=== PATIENT | female | born 1970 | race African-American/Black ===

== ENCOUNTER 2017-07-10 06:09 | Inpatient (IN) ==
[2017-07-10] MEDS ORDERED: SODIUM CHLORIDE 0.9% 1,000 ML IV STA (06:41)
[2017-07-10 06:53] LABS: Basophils # 0.1 10*3/uL (0.0-0.2); Basophils % 0.3 % (0.0-0.8); Eosinophils % 0.2 % (0.00-10.9); Hematocrit 46.3 VOL% (35.7-47.0); Hemoglobin 15.7 GM/DL (12.0-16.0); Immature Granulocytes % 0.5 %; Mean Corpuscular HGB Conc 33.9 GM/DL (32-36); Mean Corpuscular Hemoglobin 30 PG (27-34); Mean Corpuscular Volume 89.2 FL (87-102); Mean Platelet Volume 10.4 FL (9.6-12.0); Monocytes # 0.5 10*3/uL (0.11-0.8); Monocytes % 2.4 % (1.7-12.7); Neutrophils # 17.2 10*3/uL (1.4-7.4); Neutrophils % 86.6 % (38.7-73.9); Platelet Count 296 T/CUMM (130-400); Red Blood Count 5.19 MC/CUMM (3.8-5.5); Red Cell Distribution Width 14.7 % (9.3-17.3); White Blood Count 19.8 T/CUMM (4-12)
[2017-07-10] MEDS ORDERED: HYDROmorphone 2 MG/1 ML VIAL IV STA ×2 (07:03→08:02)
[2017-07-10] MEDS ORDERED: ONDANSETRON 4 MG/2 ML VIAL IV STA (07:03)
[2017-07-10] MEDS ORDERED: HYDROmorphone 2 MG/1 ML VIAL ONE ×2 (07:06→08:30)
[2017-07-10] MEDS ORDERED: ONDANSETRON 4 MG/2 ML VIAL ONE (07:06)
[2017-07-10 07:35] LABS: Albumin 4.2 G/DL (3.4-5.0); Bilirubin,Total 0.5 MG/DL (0.2-1.0); Calcium 9.7 MG/DL (8.5-10.1); Osmolality,Calculated 281.5 MOS/KG (273-304); Potassium 3.5 MMOL/L (3.5-5.1); Total Protein 8.2 G/DL (6.4-8.3)
[2017-07-10] MEDS ORDERED: LEVOFLOXACIN INJ 750 MG in PREMIX 1 EACH IV STA (08:02)
--- NOTE | 2017-07-10 08:16 | XRay Report ---
History: Abdominal pain Date: 07/10/2017 Study: Flat and erect abdomen Comparison exam: April 16, 2010 There is no evidence of pneumoperitoneum. There is no evidence to suggest bowel obstruction. There is a paucity of bowel gas over the abdomen. No definite radiopaque calculus is seen. Tubal ligation clips overlie the pelvis bilaterally. There is mild degenerative disc disease in the lower lumbar spine. Impression: No acute abdominal process PROCEDURE INTERPRETED AT [facility] DEPARTMENT OF RADIOLOGY Final Report Signed by: Dr. Ruth Thurston
[2017-07-10] MEDS ORDERED: LEVOFLOXACIN INJ 150 ML IV ONE (08:30)
--- NOTE | 2017-07-10 09:25 | CT Report ---
History: Severe abdominal pain Date: 07/10/2017 Study: CT abdomen and pelvis with contrast Comparison exam: April 15, 2012 Technique: Spiral CT sections were obtained from the lung bases to the pubic symphysis following 100 mL Omnipaque [address] abdomen: The partially visualized lung bases are generally clear. There is no gross pleural or pericardial effusion. There is mild perihepatic ascites. There is no evidence of pneumoperitoneum. There is mild diffuse fatty infiltration of the otherwise unremarkable liver. The spleen, pancreas, bile ducts, gallbladder, adrenal glands, and kidneys are generally unremarkable in appearance. There is no aortic aneurysm. There is no high-grade stenosis at the origins of the celiac or superior mesenteric arteries. There is incomplete distention of the colon, limiting evaluation for wall thickening. There is some mild wall thickening of small bowel, more so in the right lower abdomen. There is no mariam bowel obstruction. There is no obvious lymphadenopathy. The appendix is not seen with certainty. CT pelvis: There is mild pelvic ascites. The uterus is mildly prominent. There is no obvious pelvic lymphadenopathy. There is prominent degenerative disc disease at L5-S1. The CT exam was performed using one or more of the following dose reduction techniques: Automated exposure control, adjustment of the mA and/or kV according to patient size, or use of iterative reconstruction technique. Impression: There is nonspecific small bowel wall thickening without evidence of mariam obstruction. This could represent some nonspecific enteritis. There is mild pelvic and perihepatic ascites. Otherwise unremarkable exam. Please see the above discussion PROCEDURE INTERPRETED AT [facility] DEPARTMENT OF RADIOLOGY Final Report Signed by: Dr. Ruth Thurston
[2017-07-10 09:44] LABS: Apearance,Urine CLEAR (Clear); Bilirubin,Urine Negative (Negative); Blood, Urine Small mg/dL (Negative); Glucose,Urine (UA) Negative (Negative); Ketones,Urine Negative (Negative); Mucus,Urine Occasional /LPF (Occasional); Nitrite,Urine Negative (Negative); Protein,Urine 30 MG/DL; RBC,Urine 5 /HPF (0-4); Squamous Epithelial Cell,Urine Occasional /HPF (0-10); Urine Color Yellow (Yellow); Urine Urobilinogen < 2.0 EU/DL (0.2-1.0); WBC,Urine <1 /HPF (0-6)
[2017-07-10] MEDS ORDERED: ACETAMINOPHEN 325 MG TABLET PO PRN (10:11)
[2017-07-10] MEDS ORDERED: oxyCODONE/ACETAMINOPHEN 5-325 MG TABLET PO PRN (10:11)
[2017-07-10] MEDS ORDERED: SODIUM CHLORIDE 0.9% 1,500 ML IV ONE (10:14)
[2017-07-10] MEDS: SODIUM CHLORIDE 0.9% 2,500 ML IV ONE ×2 (10:16→11:06)
--- NOTE | 2017-07-10 10:49 | Hospitalist History & Physical ---
Assessment and Plan (1) Sepsis Status: Acute Assessment and plan: Admit to monitored bed. Routine vital signs. IV access. Obtain blood cultures. Urine negative. CXR pending. Implement sepsis protocol. Fluid challenges calls for 2500 ml. Pt. has received 1000 ml in ED; will received 1500 in fluid bolus on the floor. NS @ 100 ml/hr afterwards. Repeat lactic acid routinely and in am. CBC/BMP in am. CT shows possible enteritis. Start IV antibiotics. Levaquin received in ED. Current Visit: Yes (2) Hypertension Status: Chronic Assessment and plan: Restart home med. Current Visit: Yes (3) Gout Status: Chronic Assessment and plan: Restart home med. Current Visit: Yes (4) Chronic back pain Status: Chronic Current Visit: Yes (5) Nausea & vomiting Status: Acute Assessment and plan: Prn antiemetics. Clear liquid diet. IV hydration. Current Visit: Yes History of Present Illness Chief complaint: abdominal pain History of present illness: Ms. Newton is a 47 year old black female with a history of GERD, hypertension, gout, and chronic back pain presents to the ED today for further evaluation of abdominal pain, nausea, vomiting, diarrhea. Patient is accompanied by her . Patient states that the abdominal pain began within an hour of her ED clam chowder soup and salad last night around 930. She described the pain as diffuse and sharp and shortly after she began to become nauseous which led to the vomiting and diarrhea. Patient states that her ate the same food as she did but has not become sick. She reports a similar episode years ago after eating [employer]. Patient reports a subjective fever and chills but denies night sweats, chest pain, or shortness of breath. Patient states that she took Imodium but that did not relieve her symptoms. She reported she was unable to sleep at all last night. She also states that from onset of her symptoms she has vomited about 8 times and has had about 16 loose stools. She says her last diarrhea stools were clear like water. In the ED, patient was noted to be hypertensive and tachycardic. Significant labs include WBC of 19.8, neutrophils 86.6, lymph 10, glucose 146, and lactic acid of 4. CT abdomen revealed pelvic ascites and 'nonspecific small bowel wall thickening without evidence of mariam obstruction which could possibly represent some nonspecific enteritis'. Pt's case has been discussed with ER physician Dr. Barger and hospitalist Dr. Gamboa. Patient will be admitted to the hospitalist service for further evaluation and treatment. Home medications have been reviewed and reconciled. Home Medications Medication Instructions Recorded Confirmed Type Allopurinol [Zyloprim] 100 mg PO DAILY 07/10/17 07/10/17 History Lisinopril/Hydrochlorothiazide 1 each PO DAILY 07/10/17 07/10/17 History [Lisinopril-Hctz 20-12.5 mg Tab] Oxycodone HCl/Acetaminophen 1 each PO Q6H PRN 07/10/17 07/10/17 History [Percocet 10-325 mg Tablet] Zolpidem Tartrate [Ambien] 10 mg PO BEDTIME 07/10/17 07/10/17 History fentaNYL [Fentanyl 25 mcg/hr Patch] 1 patch TOP Q72H 07/10/17 07/10/17 History Allergies Allergy/AdvReac Type Severity Reaction Status Date / Time No Known Allergies Allergy Verified 03/05/15 08:12 Medical,Surgical,& Family Hx - Medical History Cardio: History of: Hypertension Neurology: No history of: Seizures Rheumatology: History of;: Gout Other: History of: Miscellaneous Medical Problems (insomnia) - Surgical History Reproductive Surgeries: Surgical HX of;: Tubal Ligation - Social History Smoking Status: Current every day smoker Frequency of Alcohol Use: Frequently Type of Drug Use: None Marital Status: Lives With:: Spouse Functional capacity: independent ambulation 12 point system: reviewed and no additional remarkable complaints except as stated Exam - Constitutional Vitals: Period Temp Pulse Resp BP Sys/Castano Pulse Ox Last 24 Hr 98.1 F-98.1 F 94-115 18-24 123-150/78-111 95-100 General appearance: normal weight, no acute distress - Head Head exam: Present: normal inspection, normocephalic - Eye Eye exam: Present: EOMI Pupils: Present: GUI - Respiratory Respiratory exam: Present: clear to auscultation bilaterally. Absent: wheezes - Cardiovascular Cardiovascular exam: Present: regular rate and rhythm - GI/Abdominal GI/Abdominal exam: Present: normal bowel sounds, tenderness, soft - Extremities Exam Extremities exam: Present: normal capillary refill, full ROM. Absent: edema - Neurological Exam Neurological exam: Present: alert, oriented X3 - Psychiatric Psychiatric exam: Present: normal affect, normal mood - Skin Skin exam: Present: normal color, warm, dry Results - Labs CBC & BMP: 07/10/17 06:26 07/10/17 06:26 Lab Results: I have reviewed the past 24 hour labs
--- NOTE | 2017-07-10 11:01 | XRay Report ---
History: Sepsis Date: 07/10/2017 Study: Chest x-ray AP portable Comparison exam: No previous similar currently available The cardiac silhouette is upper normal in size. There is no mediastinal mass. The pulmonary vasculature is not engorged. There is no pleural effusion. The lungs are clear except for some minimal platelike scar or subsegmental atelectasis in the left lung base. There is some minor thoracolumbar scoliosis. Impression: No definite acute process. Minor platelike scar or subsegmental atelectasis left lung base PROCEDURE INTERPRETED AT [facility] DEPARTMENT OF RADIOLOGY Final Report Signed by: Dr. Ruth Thurston
[2017-07-10] MEDS: ONDANSETRON 4 MG/2 ML VIAL IV PRN ×3 (11:22→22:13)
[2017-07-10] MEDS: HYDROmorphone 2 MG/1 ML VIAL IV PRN ×3 (11:22→22:14)
[2017-07-10] MEDS: metroNIDAZOLE INJ 500 MG in PREMIX 1 EACH IV SCH ×2 (13:00→21:15)
[2017-07-10] MEDS: SODIUM CHLORIDE 0.9% 1,000 ML IV SCH (13:00)
[2017-07-10] MEDS ORDERED: fentaNYL 25 MCG/HR PATCH TRANSDERM SCH (22:00)
[2017-07-10] MEDS: ZALEPLON 5 MG CAPSULE PO SCH (22:02)
[2017-07-11] MEDS: HYDROmorphone 2 MG/1 ML VIAL IV PRN ×5 (02:33→19:51)
[2017-07-11] MEDS: SODIUM CHLORIDE 0.9% 1,000 ML IV SCH ×2 (02:35→19:49)
[2017-07-11] MEDS: ONDANSETRON 4 MG/2 ML VIAL IV PRN ×4 (02:38→19:50)
[2017-07-11] MEDS: metroNIDAZOLE INJ 500 MG in PREMIX 1 EACH IV SCH ×3 (03:58→19:51)
[2017-07-11 07:13] LABS: Basophils % 0.2 % (0.0-0.8); Eosinophils # 0.2 10*3/uL (0.0-0.87); Eosinophils % 2.1 % (0.00-10.9); Hematocrit 30.4 VOL% (35.7-47.0); Immature Granulocytes % 0.6 %; Immature Granulocytes Absolute 0.06 #; Lymphocytes # 3.7 10*3/uL (1.4-4.0); Lymphocytes % 34.9 % (21.3-54.2); Mean Corpuscular HGB Conc 33.2 GM/DL (32-36); Mean Corpuscular Hemoglobin 31 PG (27-34); Mean Corpuscular Volume 92.7 FL (87-102); Mean Platelet Volume 10.9 FL (9.6-12.0); Monocytes # 0.5 10*3/uL (0.11-0.8); Monocytes % 4.4 % (1.7-12.7); Neutrophils % 57.8 % (38.7-73.9); Red Blood Count 3.28 MC/CUMM (3.8-5.5); Red Cell Distribution Width 14.8 % (9.3-17.3); White Blood Count 10.5 T/CUMM (4-12)
[2017-07-11 07:19] LABS: Hemoglobin 10.1 GM/DL (12.0-16.0)
[2017-07-11 07:20] LABS: Platelet Count 180 T/CUMM (130-400)
[2017-07-11 07:48] LABS: Magnesium 1.6 MG/DL (1.8-2.4); Osmolality,Calculated 279.3 MOS/KG (273-304); Potassium 3.1 MMOL/L (3.5-5.1); Risk Ratio 3.5; Thyroid Stimulating Hormone 2.78 uIU/ml (0.358-3.74)
[2017-07-11] MEDS ORDERED: MAGNESIUM SULF RIDER 2 GM in PREMIX 1 EACH IV ONE ×2 (08:19→11:10)
[2017-07-11] MEDS ORDERED: POTASSIUM CHLORIDE 20 MEQ TABLET PO ONE ×2 (08:19→11:10)
[2017-07-11] MEDS: LEVOFLOXACIN INJ 750 MG in PREMIX 1 EACH IV SCH (09:04)
[2017-07-11] MEDS: PANTOPRAZOLE 40 MG TABLET PO SCH (09:04)
[2017-07-11] MEDS: LISINOPRIL/HCTZ 20-12.5 MG TABLET PO SCH (09:04)
[2017-07-11] MEDS: ALLOPURINOL 100 MG TABLET PO SCH (09:04)
[2017-07-11] MEDS: DESITIN 4OZ/NYSTATIN 15 GRAM MIXTURE PASTE TOP SCH ×2 (09:05→20:25)
--- NOTE | 2017-07-11 11:09 | Hospitalist Progress Note ---
Assessment and Plan (1) Acute gastroenteritis Status: Acute Assessment and plan: Continue supportive care and IV fluids. Advance diet as tolerated. Add Bentyl. Current Visit: Yes (2) Diarrhea Status: Acute Assessment and plan: Follow-up stool studies. Current Visit: Yes Qualifiers: Diarrhea type: presumed infectious Qualified Code(s): A09 - Infectious gastroenteritis and colitis, unspecified (3) Abdominal cramping Status: Acute Current Visit: Yes (4) Hypertension Status: Chronic Current Visit: Yes Qualifiers: Hypertension type: essential hypertension Qualified Code(s): I10 - Essential (primary) hypertension (5) Chronic back pain Status: Chronic Current Visit: Yes (6) Sepsis Status: Acute Assessment and plan: The patient presented with signs and symptoms of sepsis with evidence of gastrointestinal pathology and an elevated lactic acid of greater than 4. She improved with IV fluids. Continue antibiotics and follow-up cultures. Current Visit: Yes Qualifiers: Sepsis type: sepsis due to unspecified organism Qualified Code(s): A41.9 - Sepsis, unspecified organism Hospitalist: Subjective Interval history: Patient seen and examined. No acute events overnight. Case discussed with nursing staff. Labs reviewed. Patient complains of continued abdominal cramping with decreased amounts of diarrhea. No more nausea vomiting or dry heaving. Overall improved but still not feeling well enough to go home. She started clear liquids and is tolerating it okay but does not have an increased appetite and is not ready for regular food. Exam - Constitutional Vitals: Period Temp Pulse Resp BP Sys/Castano Pulse Ox Last 24 Hr 97.5 F-98.1 F 80-102 16-18 120-152/72-95 96-98 Exam: Constitutional System: No distress. No tremulousness. Head: Normocephalic, atraumatic. Ears, Nose and Throat System: No pain or tenderness. No epistaxis or discharge Eyes System: Pupils equal, round, and reactive. Extraocular muscles intact. Neck: Supple, without adenopathy, No jugular venous distention. No thyromegaly, neck mass, or prior surgery apparent. Respiratory System: Chest clear to auscultation. Cardiovascular System: Heart with regular rate and rhythm. No murmur. GI System: Abdomen soft, nontender. Normo active bowel sounds present. Musculoskeletal System: limbs with no pedal edema. Full distal pulses. Normal capillary refill. Neurological System: No discernable sensory deficit. No aphasia Psychiatric System: Conversation is rational Results - Labs CBC & BMP: 07/11/17 05:34 07/11/17 05:34 Lab Results: I have reviewed the past 24 hour labs
[2017-07-11] MEDS: DICYCLOMINE 10 MG CAPSULE PO SCH ×3 (13:30→21:07)
[2017-07-11] MEDS: FAMOTIDINE INJ 40 MG in SODIUM CHLORIDE 0.9% 100 ML IV SCH ×2 (15:12→22:57)
[2017-07-11] MEDS ORDERED: SKIN HEALING OINT (AQUAPHOR) 50 GM TUBE TOP PRN (19:07)
[2017-07-11] MEDS: ZALEPLON 5 MG CAPSULE PO SCH (21:07)
[2017-07-12] MEDS: ONDANSETRON 4 MG/2 ML VIAL IV PRN ×3 (01:29→09:36)
[2017-07-12] MEDS: HYDROmorphone 2 MG/1 ML VIAL IV PRN ×3 (01:31→09:36)
[2017-07-12] MEDS: metroNIDAZOLE INJ 500 MG in PREMIX 1 EACH IV SCH (04:38)
[2017-07-12 05:53] LABS: Basophils % 0.2 % (0.0-0.8); Eosinophils # 0.2 10*3/uL (0.0-0.87); Eosinophils % 2.8 % (0.00-10.9); Hematocrit 29.5 VOL% (35.7-47.0); Hemoglobin 9.6 GM/DL (12.0-16.0); Immature Granulocytes % 0.2 %; Immature Granulocytes Absolute 0.02 #; Lymphocytes # 2.7 10*3/uL (1.4-4.0); Lymphocytes % 31.7 % (21.3-54.2); Mean Corpuscular HGB Conc 32.5 GM/DL (32-36); Mean Corpuscular Hemoglobin 30 PG (27-34); Mean Corpuscular Volume 92.8 FL (87-102); Mean Platelet Volume 10.5 FL (9.6-12.0); Monocytes # 0.5 10*3/uL (0.11-0.8); Monocytes % 6.2 % (1.7-12.7); Neutrophils % 58.9 % (38.7-73.9); Platelet Count 179 T/CUMM (130-400); Red Blood Count 3.18 MC/CUMM (3.8-5.5); Red Cell Distribution Width 14.5 % (9.3-17.3); White Blood Count 8.6 T/CUMM (4-12)
[2017-07-12 06:29] LABS: Calcium 7.9 MG/DL (8.5-10.1); Osmolality,Calculated 280.1 MOS/KG (273-304); Potassium 3.2 MMOL/L (3.5-5.1)
[2017-07-12 06:30] LABS: Calcium 7.8 MG/DL (8.5-10.1); Magnesium 2.4 MG/DL (1.8-2.4); Potassium 3.2 MMOL/L (3.5-5.1)
--- NOTE | 2017-07-12 07:35 | Discharge Summary ---
Hospital Course - Hospital Course Hospital Course: 47-year-old female admitted to the hospital with acute gastroenteritis and septic shock with an elevated lactic acid level of greater than 4. The patient describes acute onset nausea vomiting and diarrhea that began the night prior to admission. She continued to have nausea vomiting and diarrhea throughout the night and then started dry heaving. She was admitted to the hospital for IV fluid hydration further evaluation of sepsis with an elevated lactic acid level of greater than 4. She received copious IV fluid hydration and was started on Levaquin and Flagyl. Over the next 48 hours her symptoms have improved. Her stomach pain has dissipated. Her diarrhea has almost resolved. Her nausea and vomiting have completely resolved. She is requesting advancement in her diet and discharge home. She will receive a prescription for ciprofloxacin 500 mg twice daily for 5 more days as well as a prescription for Bentyl to alleviate some of the abdominal cramping. She may return to work on 07/14/2017. Home medications were reviewed and reconciled. No changes were made. The patient is a full code. Of note her stool studies were all negative during the course of the hospitalization. - Time spent with patient Time with patient DS: Greater than 30 minutes Diagnosis - Discharge Diagnosis (1) Acute gastroenteritis Status: Acute (2) Diarrhea Status: Acute (3) Abdominal cramping Status: Acute (4) Hypertension Status: Chronic (5) Chronic back pain Status: Chronic (6) Sepsis Status: Acute Discharge Plan - Discharge Data Disposition: Disch To Home/Self Care Condition at Discharge: Stable Discharge Diet: advance to your usual diet Activity: resume usual activities as tolerated Hygiene: no restrictions Weight Bearing at Discharge: full weight bearing Driving: no restrictions Contact your physician if you experience:: fever over 101, Nausea/Vomiting, pain uncontrolled by pain medications - Discharge Medications New Ciprofloxacin Tab [Cipro Tab] 500 mg PO BID #10 tablet Dicyclomine Cap/Tab [Bentyl Cap/Tab] 10 mg PO TID #20 capsule Continue Zolpidem Tartrate [Ambien] 10 mg PO BEDTIME Allopurinol [Zyloprim] 100 mg PO DAILY Oxycodone HCl/Acetaminophen [Percocet 10-325 mg Tablet] 1 each PO Q6H PRN PRN Reason: Pain Lisinopril/Hydrochlorothiazide [Lisinopril-Hctz 20-12.5 mg Tab] 1 each PO DAILY fentaNYL [Fentanyl 25 mcg/hr Patch] 1 patch TOP Q72H - Follow Up or Referral - Forms/Instructions Forms: Acute Care Work/School Release Instructions: Gastroenteritis (DC), Hypertension (DC) Additional Discharge Instructions: Follow-up with primary care physician as needed Exam - Constitutional Vitals: Period Temp Pulse Resp BP Sys/Castano Pulse Ox Last 24 Hr 97.2 F-98.3 F 82-95 16-18 133-159/72-95 95-99 Discharge Results Procedures and tests throughout hospitalization: Pending Orders 07/10/17 07:11 Blood Culture Stat 07/10/17 16:09 Stool Culture Stat Labs on day of discharge: Labs from last 24 hours 07/12/17 07/12/17 07/12/17 05:20 05:20 05:20 WBC 8.6 RBC 3.18 L Hgb 9.6 L Hct 29.5 L MCV 92.8 MCH 30 MCHC 32.5 RDW 14.5 Plt Count 179 MPV 10.5 Neut % (Auto) 58.9 Lymph % (Auto) 31.7 [place] % (Auto) 6.2 Eos % (Auto) 2.8 Baso % (Auto) 0.2 Neut # (Auto) 5.0 Lymph # (Auto) 2.7 [place] # (Auto) 0.5 Eos # (Auto) 0.2 Baso # (Auto) 0.0 Immature Gran % 0.2 Nucleated RBC % 0.0 Immature Gran # 0.02 Nucleated RBCs # 0.00 Immature Plt Fraction 0.0 Sodium 143 142 Potassium 3.2 L 3.2 L Chloride 109 H 108 H Carbon Dioxide 23 23 Anion Gap 14.2 14.2 BUN 8 8 Creatinine 0.70 0.70 GFR Calculation 142 142 BUN/Creatinine Ratio 11.00 11.00 Glucose 109 H 105 Hemoglobin A1c Calculated Osmolality 283.0 280.1 Lactic Acid Calcium 7.8 L 7.9 L Magnesium 2.4 Triglycerides Cholesterol LDL Cholesterol VLDL Cholesterol HDL Cholesterol Heart Disease Risk Ratio TSH 3rd Generation 07/11/17 07/11/17 07/11/17 05:34 05:34 05:34 WBC RBC Hgb Hct MCV MCH MCHC RDW Plt Count MPV Neut % (Auto) Lymph % (Auto) [place] % (Auto) Eos % (Auto) Baso % (Auto) Neut # (Auto) Lymph # (Auto) [place] # (Auto) Eos # (Auto) Baso # (Auto) Immature Gran % Nucleated RBC % Immature Gran # Nucleated RBCs # Immature Plt Fraction Sodium 141 Potassium 3.1 L Chloride 107 Carbon Dioxide 23 Anion Gap 14.1 BUN 11 Creatinine 0.70 GFR Calculation 142 BUN/Creatinine Ratio 15.00 Glucose 93 Hemoglobin A1c 5.9 Calculated Osmolality 279.3 Lactic Acid 1.8 Calcium 7.0 L D Magnesium 1.6 L Triglycerides 310 H Cholesterol 147 LDL Cholesterol 67.0 VLDL Cholesterol 62.0 HDL Cholesterol 42 Heart Disease Risk Ratio 3.50 TSH 3rd Generation 2.780 Preliminary micro results at discharge 07/10/17 16:09 Stool Culture - Preliminary Stool No enteric pathogens at 24 hrs 07/10/17 07:11 Blood Culture - Preliminary Blood No growth at 1 day 07/10/17 07:11 Blood Culture - Preliminary Blood No growth at 1 day DS: Provider Date of admission: 07/10/17 09:01 Primary care physician: . No PCP Attending physician on admission: Rama Gamboa MD Discharging clinician: Rama Gamboa MD Expected date of discharge: 07/12/17
[2017-07-12] MEDS: POTASSIUM CHLORIDE 20 MEQ TABLET PO PRN ×2 (09:27→11:08)
[2017-07-12] MEDS: DICYCLOMINE 10 MG CAPSULE PO SCH (09:27)
[2017-07-12] MEDS: PANTOPRAZOLE 40 MG TABLET PO SCH (09:27)
[2017-07-12] MEDS: ALLOPURINOL 100 MG TABLET PO SCH (09:27)
[2017-07-12] MEDS: DESITIN 4OZ/NYSTATIN 15 GRAM MIXTURE PASTE TOP SCH (09:27)
[2017-07-12] MEDS: LISINOPRIL/HCTZ 20-12.5 MG TABLET PO SCH (09:27)
[2017-07-12] MEDS: LEVOFLOXACIN INJ 750 MG in PREMIX 1 EACH IV SCH (09:27)
[2017-07-12 10:08] VITALS: BP 126/80
[2017-07-12] MEDS: FAMOTIDINE INJ 40 MG in SODIUM CHLORIDE 0.9% 100 ML IV SCH (11:02)
== END 2017-07-12 12:00 | disposition home or self-care (01) | DRG 871 ==
LOC: N.ED 06:09 → N.EDINP 09:01 → N.5E 10:09
PROVIDERS: ADMIT Family Medicine; ATTEND Family Medicine